=== PATIENT | male | born 1960 | race Two or more races ===

== ENCOUNTER 2018-04-21 10:43 | Emergency (ER) | payer OTHER ==
[~2018-04-21] VITALS: Ht 170.2 cm; Wt 75.0 kg
[2018-04-21] MEDS ORDERED: DIAZEPAM 5 MG TABLET PO ONE (11:15)
[2018-04-21] MEDS ORDERED: KETOROLAC 60MG/2ML VIAL IM ONE (11:15)
[2018-04-21] MEDS ORDERED: IBUPROFEN 800MG TABLET PO ONE (12:15)
[2018-04-21 12:40] VITALS: BP 148/70
== END 2018-04-21 17:26 | disposition home or self-care (01) ==
LOC: ER 17:07
DX: S39.012A Strain of muscle, fascia and tendon of lower back, initial encounter (principal); X58.XXXA Exposure to other specified factors, initial encounter; Y93.89 Activity, other specified; Y92.89 Other specified places as the place of occurrence of the external cause; Y99.8 Other external cause status
CPT/HCPCS: 99283; J1885

== ENCOUNTER 2024-10-10 10:46 | Emergency (ER) | payer OTHER ==
[~2024-10-10] VITALS: Ht 170.2 cm; Wt 61.2 kg
[2024-10-10 10:56] VITALS: O2SAT 100
[2024-10-10] MEDS: CYCLOBENZAPRINE 10MG TABLET PO ONE (13:55)
[2024-10-10] MEDS: IBUPROFEN 600MG TABLET PO ONE (13:57)
[2024-10-10] MEDS: KETOROLAC 15MG/ML VIAL IM ONE (13:57)
[2024-10-10] MEDS ORDERED: NAPR-681 MT (16:08)
[2024-10-10] MEDS ORDERED: METH-653 MT (16:08)
[2024-10-10 16:31] VITALS: BP 127/74; PULSE 65; RESP 18; TEMP 36.6; O2SAT 100
== END 2024-10-10 16:32 | disposition home or self-care (01) ==
LOC: ER 11:13
DX: G89.29 Other chronic pain (principal); Z79.1 Long term (current) use of non-steroidal anti-inflammatories (NSAID)
CPT/HCPCS: 72100; 99283; Z7610; J1885